=== PATIENT | female | born 1955 | race Caucasian/White ===

== ENCOUNTER 2016-10-02 11:02 | Emergency (ER) | payer SELFPAY ==
[~2016-10-02] VITALS: Ht 157.5 cm; Wt 54.0 kg
[2016-10-02 12:37] VITALS: BP 146/74
[2016-10-02 13:26] LABS: BASOPHILS % 0.3 % (0.0-2.0); EOSINOPHILS % 0.2 % (0.0-5.0); HEMATOCRIT. 37.4 % (36.0-48.0); HEMOGLOBIN. 12.5 g/dL (12.0-16.0); LYMPHOCYTES % 10.3 % (20.0-50.0); MEAN CORPUSCULAR VOLUME 92.8 fL (81.0-99.0); MEAN PLATELET VOLUME 8.6 fl (7.4-10.4); MONOCYTES % 5.3 % (2.0-8.0); NEUTROPHILS % 83.9 % (40.0-76.0); PLATELET 222 x1000/uL (130-400); RED BLOOD CELL COUNT 4.03 mill/uL (4.2-5.4); RED CELL DISTRIBUTION WIDTH 15.1 % (11.6-14.6)
[2016-10-02 13:33] LABS: PARTIAL THROMBOPLASTIN TIME 28.3 sec (24.0-34.0)
[2016-10-02] MEDS ORDERED: LORAZEPAM 2MG/ML CPJ IM ONE (13:45)
== END 2016-10-02 17:53 | disposition left against medical advice (07) ==
LOC: ER 11:24
DX: R04.0 Epistaxis (principal); Z88.0 Allergy status to penicillin
CPT/HCPCS: 36415; 85025; 85610; 85730; 96372; 99284; J2060; Z7610